=== PATIENT | male | born 1995 | race Caucasian/White ===

== ENCOUNTER → 2024-05-04 12:49 | Outpatient (CLI) | payer OTHER, SELFPAY ==
--- NOTE | 2024-05-04 12:51 | DI.US.S_ITS ---
PROCEDURE: US ABDOMEN LIMITED INDICATIONS: Hepatomegaly TECHNIQUE: Real-time scanning was performed of the abdominal, with image documentation. COMPARISON: None. FINDINGS: Liver: Liver measures 16.3 cm in length. Increased in echogenicity. Gallbladder: Nondilated. No stones or sludge. Normal gallbladder wall thickness. No pericholecystic fluid. Negative sonographic Cordero's sign. Biliary ducts: Intrahepatic bile ducts are non-dilated. Extrahepatic bile duct caliber measures 4 mm. Normal is 6-7 mm or less in diameter, or 10 mm or less post-cholecystectomy. Pancreas: Visualized portions of the pancreas are sonographically normal. IMPRESSION: Liver is within normal limits in size. Increased hepatic echogenicity most consistent with hepatic steatosis. Other forms of hepatocellular disease could have similar appearance. No gallstones. Dictated by: Mike Alberto M.D. on 05/04/2024 at 18:47 Approved by: Mike Alberto M.D. on 05/04/2024 at 18:49
== END ==
LOC: US 12:51
PROVIDERS: Referring Provider Internal Medicine; Visit Provider Internal Medicine
DX: R16.0 Hepatomegaly, not elsewhere classified (principal); E66.9 Obesity, unspecified
CPT/HCPCS: 76705